=== PATIENT | female | born 1985 | race Caucasian/White ===

== ENCOUNTER 2017-01-02 08:57 | Inpatient (IN) | payer OTHER ==
[2017-01-02] MEDS ORDERED: ceFAZolin 2 GM PREMIX(*) 2 GM/50 ML BAG IVPB ONE (09:11)
[2017-01-02 09:26] LABS: Hematocrit 37 % (35-47); Hemoglobin 12.7 g/dl (12.0-16.0); Mean Corpuscular HGB Conc 34 g/dl (31-36); Mean Corpuscular Hemoglobin 31 pg (27-31); Mean Corpuscular Volume 90 fL (80-97); Mean Platelet Volume 10 um3 (7.4-10.4); Red Blood Count 4.11 10^6/ul (4.0-5.4); Red Cell Distribution Width 14 % (10.5-15); White Blood Count 10.8 10^3/ul (3.5-10.8)
[2017-01-02] MEDS ORDERED: fentaNYL* 50 MCG/ML 2 ML VIAL (100 MCG VIAL) ONE (09:42)
[2017-01-02] MEDS ORDERED: OBEPIDURAL* 250 ML ONE (09:43)
[2017-01-02] MEDS ORDERED: ceFAZolin 2 GM PREMIX(*) 2 GM/50 ML BAG IVPB SCH (10:00)
[2017-01-02] MEDS ORDERED: Famotidine TAB* 20 MG PO PRN (11:32)
[2017-01-02] MEDS ORDERED: Sodium Citrate/Citric Acid* 15 ML UDC PO PRN (11:32)
[2017-01-02] MEDS ORDERED: Phenylephrine IV* 40 MCG/ML 10 ML SYRINGE IV PUSH PRN ×2 (11:32)
[2017-01-02] MEDS ORDERED: OBEPIDURAL* 250 ML EPIDURAL SCH (12:00)
[2017-01-02] MEDS ORDERED: Oxytocin in LR* 20 UNITS/1,000 ML BAG IVPB SCH ×2 (16:00→17:01)
[2017-01-02] MEDS ORDERED: Acetaminophen TAB* 325 MG PO PRN (16:59)
[2017-01-02] MEDS ORDERED: Glycerin ADULT SUPP PR PRN (16:59)
[2017-01-02] MEDS ORDERED: Dibucaine 1% 28.35 GM TUBE PR PRN (16:59)
[2017-01-02] MEDS ORDERED: Witch Hazel PAD* JAR TOPICAL PRN (16:59)
[2017-01-02] MEDS: Ibuprofen TAB* 600 MG PO PRN (19:47)
[2017-01-02] MEDS: Docusate CAP* 100 MG PO SCH (20:37)
[2017-01-03] MEDS: Ibuprofen TAB* 600 MG PO PRN ×2 (05:03→18:02)
[2017-01-03 06:56] LABS: Hematocrit 34 % (35-47); Hemoglobin 11.7 g/dl (12.0-16.0); Mean Corpuscular HGB Conc 34 g/dl (31-36); Mean Corpuscular Hemoglobin 31 pg (27-31); Mean Corpuscular Volume 89 fL (80-97); Mean Platelet Volume 10 um3 (7.4-10.4); Red Blood Count 3.83 10^6/ul (4.0-5.4); Red Cell Distribution Width 14 % (10.5-15); White Blood Count 12.9 10^3/ul (3.5-10.8)
[2017-01-03] MEDS ORDERED: Ferrous Gluconate TAB* 324 MG TAB PO SCH (09:00)
[2017-01-03] MEDS: Docusate CAP* 100 MG PO SCH ×3 (09:00→19:43)
[2017-01-03] MEDS: oxyCODONE/Acetamin 5/325 MG* TAB PO PRN ×2 (11:41→19:28)
[2017-01-04] MEDS: Ibuprofen TAB* 600 MG PO PRN ×2 (00:48→06:33)
[2017-01-04] MEDS: oxyCODONE/Acetamin 5/325 MG* TAB PO PRN ×2 (03:58→10:48)
[2017-01-04 08:12] VITALS: BP 109/75
== END 2017-01-04 13:05 | disposition home or self-care (01) | DRG 560 ==
LOC: MCHOBOUT 08:57 → MCHOB 09:08
PROVIDERS: ADMIT Midwife; ATTEND Midwife
PROC: 10E0XZZ Delivery of Products of Conception, External Approach (ICD-10-PCS; principal; 2017-01-02)
DX: O60.20X0 Term delivery with preterm labor, unspecified trimester, not applicable or unspecified (principal); O99.824 Streptococcus B carrier state complicating childbirth; O69.89X0 Labor and delivery complicated by other cord complications, not applicable or unspecified; Z88.1 Allergy status to other antibiotic agents; Z88.2 Allergy status to sulfonamides; Z3A.38 38 weeks gestation of pregnancy; Z37.0 Single live birth
CPT/HCPCS: 36415; 85025; 85027; 86850; 86900; 86901; A9270-GY; J0690; J3010

== ENCOUNTER 2017-09-08 17:52 | Emergency (ER) | payer SELFPAY ==
[2017-09-08 19:45] LABS: ABS Basophils 0.1 10^3/ul (0-0.2); ABS Eosinophils 0.3 10^3/ul (0-0.6); ABS Lymphocytes 3.1 10^3/ul (1.0-4.8); ABS Monocytes 0.5 10^3/ul (0-0.8); ABS Neutrophils 5.7 10^3/ul (1.5-7.7); ABS Nucleated RBC 0 10^3/ul; Eosinophil % 2.8 % (0-6); Hematocrit 39 % (35-47); Hemoglobin 13.8 g/dl (12.0-16.0); Lymphocyte % 32.3 % (25-47); Mean Corpuscular HGB Conc 35 g/dl (31-36); Mean Corpuscular Hemoglobin 30 pg (27-31); Mean Corpuscular Volume 84 fL (80-97); Nucleated Red Blood Cells % 0; Platelet Count 290 10^3/ul (150-450); Red Blood Count 4.69 10^6/ul (4.0-5.4); Red Cell Distribution Width 14 % (10.5-15); White Blood Count 9.6 10^3/ul (3.5-10.8)
[2017-09-08 20:03] LABS: EGFR Non-African American 100.3 (>60)
[2017-09-08] MEDS ORDERED: Iohexol 300* (CONTRAST) 10 ML SDV IV ONE (20:27)
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
[2017-09-08] MEDS ORDERED: Diazepam TAB(*) 5 MG PO ONE (21:24)
[2017-09-08] MEDS ORDERED: Acetaminophen TAB* 325 MG PO ONE (21:24)
[2017-09-08 21:57] VITALS: BP 122/68
== END 2017-09-08 21:56 | disposition home or self-care (01) ==
LOC: ED 17:52
DX: Z04.1 Encounter for examination and observation following transport accident (principal)
CPT/HCPCS: 36415; 70450; 71260; 72125; 74177; 80053; 83605; 85025; 99282; A9270-GY; Q9967

== ENCOUNTER 2017-10-22 09:02 | Emergency (ER) | payer OTHER ==
[2017-10-22 09:14] VITALS: BP 100/62
--- NOTE | 2017-10-22 10:16 | UC ---
Respiratory Complaint HPI - HPI Summary HPI Summary: 32 yo WF c/o increasing and worsening cough with green sputum and pleuritic CP x 3 weeks now, took anti-allergy meds without improvement. Denies f/c - History of Current Complaint Chief Complaint: UCRespiratory Stated Complaint: COUGH Time Seen by Provider: 10/22/17 09:48 Hx Obtained From: Patient Hx Last Menstrual Period: had implant taken out 3 weeks ago Onset/Duration: Lasting Weeks Severity Initially: Moderate Severity Currently: Severe Pain Intensity: 4 Character: Cough: Productive Aggravating Factors: Nothing Alleviating Factors: Nothing Associated Signs And Symptoms: Positive: Pleuritic Chest Pain Related History: Seasonal Allergies - Allergies/Home Medications Allergies/Adverse Reactions: Allergies Allergy/AdvReac Type Severity Reaction Status Date / Time Adhesive Tape Allergy Rash Verified 10/22/17 09:15 amoxicillin Allergy Rash Verified 10/22/17 09:15 Sulfa (Sulfonamide Allergy Rash Verified 10/22/17 09:15 Antibiotics) PMH/Surg Hx/FS Hx/Imm Hx Previously Healthy: Yes Other History Of: Negative For: Anticoagulant Therapy - Surgical History Surgical History: Yes Surgery Procedure, Year, and Place: colectomy at 21, gallbladder removal 2013. SCAR REMOVAL ADHESIONS X3 - Family History Known Family History: Positive: Other - FHx of asthma, Father Hx of Parkinson's - Social History Alcohol Use: None Substance Use Type: None Smoking Status (MU): Never Smoked Tobacco - Immunization History Most Recent Influenza Vaccination: 2014 Most Recent Tetanus Shot: up to date Most Recent Pneumonia Vaccination: unsure Review of Systems Constitutional: Negative Skin: Negative Eyes: Negative ENT: Negative Respiratory: Cough Cardiovascular: Negative Gastrointestinal: Negative Genitourinary: Negative Motor: Negative Neurovascular: Negative Musculoskeletal: Negative Neurological: Negative Psychological: Negative All Other Systems Reviewed And Are Negative: Yes Physical Exam Triage Information Reviewed: Yes Appearance: No Pain Distress Vital Signs: Initial Vital Signs Temp 36.7 C 10/22/17 09:08 Pulse 114 10/22/17 09:08 Resp 20 10/22/17 09:08 BP 100/62 10/22/17 09:08 Pulse Ox 99 10/22/17 09:08 Eye Exam: Normal ENT Exam: Normal Dental Exam: Normal Neck exam: Normal Neck: Positive: 1 Respiratory: Positive: No respiratory distress, Rhonchi. Negative: Crackles, Stridor, Wheezing Cardiovascular Exam: Normal Abdominal Exam: Normal Musculoskeletal Exam: Normal Neurological Exam: Normal Psychological Exam: Normal Skin Exam: Normal UC Diagnostic Evaluation - Laboratory O2 Sat by Pulse Oximetry: 99 Respiratory Course/Dx - Differential Dx/Diagnosis Provider Diagnoses: bronchitis. cough Discharge - Sign-Out/Discharge Documenting (check all that apply): Discharge/Admit/Transfer - Discharge Plan Condition: Stable Disposition: HOME Prescriptions: Azithromycin TAB* [Zithromax TAB (Z-PRINCESS) 250 mg #6 tabs] 2 tab PO .TODAY, THEN 1 DAILY #1 princess Benzonatate CAP* [Tessalon 100 MG CAP*] 100 mg PO TID 10 Days #30 cap Promethazine HCl/Codeine [Prometh-Codein 6.25-10 mg/5 ml] 5 ml PO QID PRN 7 Days #1 btl MDD 20ml PRN Reason: Cough Patient Education Materials: Acute Bronchitis (ED) Referrals: Christa Craft MD [Primary Care Provider] - - Billing Disposition and Condition Condition: STABLE Disposition: HOME
== END 2017-10-22 10:19 | disposition home or self-care (01) ==
LOC: UCEAST 09:02
DX: J40 Bronchitis, not specified as acute or chronic (principal); R05 Cough; Z88.0 Allergy status to penicillin; Z88.2 Allergy status to sulfonamides; Z91.09 Other allergy status, other than to drugs and biological substances
CPT/HCPCS: 99212; G0463

== ENCOUNTER 2017-11-29 17:45 | Emergency (ER) | payer OTHER ==
[2017-11-29 17:58] VITALS: BP 94/64
--- NOTE | 2017-11-29 19:58 | UC ---
Georgette Brady Emily, scribed for Severo Acosta MD on 11/29/17 at 1809 . Ear Complaint HPI - HPI Summary HPI Summary: This patient is a 32 year old F presenting to [facility] accompanied by with a chief complaint of water in bilateral ears that began yesterday. The patient rates the pain 3/10 in severity. Symptoms aggravated by nothing. Symptoms alleviated by nothing. Patient reports cough (began 6 weeks ago). Allergies reviewed. Medications reviewed. - History of Current Complaint Chief Complaint: UCEar Stated Complaint: WATER IN EARS Time Seen by Provider: 11/29/17 18:00 Hx Obtained From: Patient Hx Last Menstrual Period: [id number] ?: No Onset/Duration: Sudden Onset, Lasting Days, Still Present Severity Initially: Mild Severity Currently: Mild Pain Intensity: 3 Pain Scale Used: 0-10 Numeric Aggravating Factors: Nothing Alleviating Factors: Nothing Associated Signs/Symptoms: Positive: Foreign Body Sensation, URI Symptoms - Allergies/Home Medications Allergies/Adverse Reactions: Allergies Allergy/AdvReac Type Severity Reaction Status Date / Time Adhesive Tape Allergy Rash Verified 11/29/17 17:58 amoxicillin Allergy Rash Verified 11/29/17 17:58 Sulfa (Sulfonamide Allergy Rash Verified 11/29/17 17:58 Antibiotics) PMH/Surg Hx/FS Hx/Imm Hx Previously Healthy: No Endocrine History: Other Other Endocrine History: Negative thyroid disease Cardiovascular History: Other Other Cardiovascular History: Negative HTN Other History Of: Negative For: Anticoagulant Therapy - Surgical History Surgical History: Yes Surgery Procedure, Year, and Place: colectomy at 21, colectomy reversal three months later. gallbladder removal 2013. SCAR REMOVAL ADHESIONS X3 - Family History Known Family History: Positive: Other - FHx of asthma, Father Hx of Parkinson's - Social History Occupation: Employed Full-time Lives: With Family Alcohol Use: Weekly Substance Use Type: None Smoking Status (MU): Never Smoked Tobacco - Immunization History Most Recent Influenza Vaccination: 2015 Most Recent Tetanus Shot: up to date Most Recent Pneumonia Vaccination: unsure Review of Systems ENT: Other - Positive water in ears Respiratory: Cough All Other Systems Reviewed And Are Negative: Yes Physical Exam - Summary Physical Exam Summary: General: well-appearing, no pain distress Skin: warm, color reflects adequate perfusion, dry Head: normal Eyes: EOMI, ISABELLA ENT: Bilateral ear canals have moisture. TMs are not erythematous or bulging. Positive rhinorrhea. Tenderness to palpation of the bilateral tragus. Neck: supple, nontender Respiratory: CTA, breath sounds present, dry cough Cardiovascular: RRR Abdomen: soft, nontender Bowel: present Musculoskeletal: normal, strength/ROM intact Neurological: sensory/motor intact, A&O x3 Psychological: affect/mood appropriate Triage Information Reviewed: Yes Vital Signs: Initial Vital Signs Temp 97.9 F 11/29/17 17:53 Pulse 80 11/29/17 17:53 Resp 16 11/29/17 17:53 BP 94/64 11/29/17 17:53 Pulse Ox 99 11/29/17 17:53 Vital Signs Reviewed: Yes Ear Complaint Course/Dx - Differential Dx/Diagnosis Provider Diagnoses: SINUSITIS. B/L OTITIS EXTERNA Discharge - Sign-Out/Discharge Documenting (check all that apply): Discharge/Admit/Transfer - Discharge Plan Condition: Stable Disposition: HOME Prescriptions: DOXYcycline CAP(*) [DOXYcycline 100MG CAP(*)] 100 mg PO BID #20 cap Neomyc/Polym/HC 1% OTIC SUSP* [Cortisporin Otic Susp 1%*] 4 drop BOTH EARS QID # 1 btl Patient Education Materials: Sinusitis (ED), Otitis Externa (ED) Referrals: [facility] [place] [Outside] Additional Instructions: FOLLOW UP WITH YOUR DOCTOR IF NOT COMPLETELY IMPROVED. GET RECHECKED FOR ANY WORSENING OF YOUR CONDITION OR QUESTIONS OR CONCERNS. - Billing Disposition and Condition Condition: STABLE Disposition: Home The documentation as recorded by the Georgette ford Emily accurately reflects the service I personally performed and the decisions made by me, Severo Acosta MD.
== END 2017-11-29 18:21 | disposition home or self-care (01) ==
LOC: UCEAST 17:45
DX: H60.93 Unspecified otitis externa, bilateral (principal); J32.9 Chronic sinusitis, unspecified; Z91.09 Other allergy status, other than to drugs and biological substances; Z88.0 Allergy status to penicillin; Z88.2 Allergy status to sulfonamides
CPT/HCPCS: 99212; G0463

== ENCOUNTER 2018-01-30 11:33 | Emergency (ER) | payer OTHER ==
--- OUTSIDE RECORDS SUMMARY | 2018-01-30 11:55 | XMS REPORT ---
:1985 External Reference #:[id number] Author Organization [facility] Address [address] [address] Phone [phone] Care Team Providers Name Role Phone Aniceto Clements PA Primary Care Physician Unavailable Payers Type Date Identification Numbers Payment Provider Subscriber Commercial Policy Number: [id number] [facility] Noris Phan PayID: [id number] [address] [place] [address] Problems Date Description Provider Status Onset: 12/15/2004 Ulcerative colitis Sarai Meng MD Active Family History Date Family Member(s) Problem(s) Comments Father Parkinson's Disease Mother Alive And Well First Sister Alive And Well Social History Type Date Description Comments Cigarette Use Never smoked cigarettes Alcohol Drinks alcohol occasionally Smoking Patient has never smoked Allergies, Adverse Reactions, Alerts Date Description Reaction Status Severity Comments 12/15/2004 Sulfa active Rash 11/23/2017 Naproxen active 11/23/2017 Adhesives active 11/23/2017 Amoxicillin active Medications Medication Date Status Form Strength Qnty SIG Indications Ordering Provider Cyclobenzaprine 01/18 Active Tablets 10mg 30tab 1/2 to 1 M62.830 Macadam, HCL s tab by Aliyah mouth MD Sabrina nightly needed muscle spasm Prednisone 01/18 Hx Tablets 20mg 10tab 2 by mouth M62.830 Macadam, /2017 s every Aliyah - joanne Bennett MD 01/23 Oxycodone-Acetam 01/18 Active Tablets 5-325mg 10tab 1/2 to 1 M62.830 Macadam, inophen s tab po qhs Aliyah prn MD Sabrina No Active 11/30 Hx Unknown Medications /2017 - 01/18 Benzonatate 11/23 Hx Capsules 100mg 30cap 1-2 by Macaaracelis s mouth three Aliyah - times a day MD Sabrina 11/23 as needed cough No Active 11/23 Hx Unknown Medications - 11/23 Levofloxacin 11/23 [facility]x [facility] 750[facility] - for 5 days MD Sabrina 11/28 Fluticasone 11/23 Hx Suspension 50mcg/Act 48gm 1 sprays in J01.90 Tila, Propionate each Aliyah - nostril MD Sabrina 11/30 twice daily Hydrocodone 11/23 Hx Syrup 5-1.5mg/5 200ml 5ml every J01.90 Tila Bitartrate/Homat ML 4-6hrs as Aliyah ropine - needed MD Sabrina Methylbromide 11/30 No Active 06/04 Hx Pfau, Medications Erica Soto MD 11/23 Amoxicillin/Clav 06/03 Hx 875mg 20uni 1 PO bid 461.8 ramiro Meng ts WM , Be Sarai Potassium - Sure To 06/04 Take Activia Yogurt Daily While On Meds Tylenol W06/03 Hx Tablets 300mg;30 30tab 1-2 po q4-6 461.8 Yusra Codeine #3 /2012 mg s hours prn Sarai, - more severe 06/04 cough, small snack, mostly use at night mdd 8 Diflucan 09/19 Hx Tablets 150mg 1tabs one tab po 616.10 Yusra times one Anton Moon day, september 09/20 repeat once in 3 days if not cleared Cancel Clindamycin 09/19 Hx Cream 2% 40GMS 1 616.10 Yusra applicatorf Anton Moon ul 09/20 intravagina lly q hs for 7 days Cancel Cancel Physical Exam 05/10 Hx had A V70.0 Yusra normal Sarai - physical 05/11. Bactroban 11/05 Hx Cream 2% 15GMS Use as 682.9 Yusra Directed Anton Moon MD 11/06 bid Diflucan 11/02 Hx Tablets 150mg 1tabs one tab po 616.10 Yusra times one Anton Moon september 11/03 repeat once in 3 days if not cleared Mercaptopurine 12/15 Hx Tablets 50mg 1 PO qd Yusra Anton Moon MD 05/10 Pelvic Sonogram 12/15 Hx Na Na hypomenorrh 626.1 Yusra ea Anton Moon MD 12/16 Naprosyn 12/15 Hx Tablets 500mg 30tab 1 PO bid V70.0 Yusra s With Food Anton Moon prn Pain 05/10 Medications Administered in Office Medication Date Status Form Strength Qnty SIG Indications Ordering Provider PPD Administered Injection Bridgette Meng MD PPD Administered Injection Nurses 6 Schedule Loc 4 Immunizations CPT Code Status Date Vaccine Lot # [id number] Given 03/06/2009 Afluria Or Fluvirin Flu Vac Intramuscular [id number] Given 12/15/2004 Menactra/Menveo Meningococcal Vaccine Vital Signs Date Vital Result Comment 01/18/2018 Heart Rate 78 /min BP Systolic 109 mmHg BP Diastolic 83 mmHg Height 63.5 inches 5'3.50" 11/23/2017 Weight 155.00 lb Heart Rate 78 /min BP Systolic 113 mmHg BP Diastolic 72 mmHg Height 63.5 inches 5'3.50" BMI (Body Mass Index) 27.0 kg/m2 06/03/2012 Body Temperature 98.0 F 05/10/2008 Weight 130.00 lb BP Systolic 104 mmHg BP Diastolic 66 mmHg Height 63 inches 5'3" BMI (Body Mass Index) 23.0 kg/m2 Urine Dipstick - Blood NEGATIVE Neg Nitrites Urine Dipstick - Protein NEGATIVE Neg Leukocytes Urine Dipstick - Glucose NEGATIVE 12/15/2004 Weight 137.50 lb BP Systolic 90 mmHg BP Diastolic 60 mmHg Height 63 inches 5'3" BMI (Body Mass Index) 24.4 kg/m2 Urine Dipstick - Blood TRACE No Leuk/Nitrite Urine Dipstick - Protein TRACE Urine Dipstick - Glucose NEGATIVE Results Test Date Test Result H/L Range Note Urinalysis 09/08/2012 Color YELLOW 1 Appearance CLEAR Spec Grav Urine 1.025 (1.003-1.030) PH Urine 7.0 (5.0-7.5) Leuk Esterase NEGATIVE (Neg) Nitrite Urine NEGATIVE (Neg) Protein Urine NEGATIVE (Neg) Glucose Urine NEGATIVE (Neg) Ketone Urine TRACE (Neg) Urobilinogen 0.2 mg/dL (0-1.0) Bilirubin Urine NEGATIVE (Neg) Blood/HGB Urine NEGATIVE (Neg) Laboratory test finding 09/08/2012 Urine Culture SPECIMEN DESCRIP <SEE 2 NOTE> Laboratory test finding 08/28/2011 Lipase 56 U/L Low (65-230) HCG, Qual. Serum NEGATIVE (Neg) CMP 08/28/2011 Sodium 140 mmol/L (136-145) Potassium 3.6 mmol/L (3.6-5.2) Chloride 103 mmol/L (100-108) Co2 25 mmol/L (22-31) Anion Gap 12 mmol/L (7-16) Urea Nitrogen 13 mg/dL (7-24) Creatinine 0.7 mg/dL (0.6-1.0) BUN/Creat Ratio 18.6 RATIO (10.0-20.0) Glucose 96 mg/dL (70-99) Calcium 9.3 mg/dL (8.4-10.2) Total Protein 7.5 g/dL (6.4-8.2) Albumin 4.4 g/dL (3.5-4.6) Globulin 3.1 g/dL (2.7-4.3) Alb/Glob Ratio 1.4 RATIO Alkaline Phosphatase 95 U/L (50-136) Bilirubin,Total 0.5 mg/dL (0.0-1.0) Ast (Sgot) 26 U/L (11-39) Alt (SGPT) 65 U/L (25-69) GFR >90 ML/MIN/1.73M2 (>59) GFR ( Amer) >90 ML/MIN/1.73M2 (>59) GFR Interpretation <SEE NOTE> 3 CBC W/Diff 08/28/2011 WBC 6.3 K/UL (4.1-11.0) RBC 4.56 M/UL (4.00-5.40) HGB 14.0 GM/DL (12.0-16.0) HCT 40.9 % (36.0-47.0) MCV 89.7 FL (80.0-95.0) MCH 30.6 pg (27.0-32.0) MCHC 34.2 g/dL (32.0-36.0) RDW 12.8 % (10.5-14.5) PLT 286 K/UL (150-400) MPV 8.6 FL (7.1-10.7) Neut % 60.0 % (35.0-75.0) Lymph % 27.0 % (16.0-52.0) Parker % 9.2 % High (0-8.0) Eos % 3.2 % (0-5.0) Baso % 0.6 % (0-4.0) Neut # 3.8 K/UL (1.8-7.7) Lymph # 1.7 K/UL (1.2-4.8) Parker # 0.6 K/UL (0-0.8) Eos # 0.2 K/UL (0-0.5) Baso # 0.0 K/UL (0-0.2) Laboratory test 08/28/2011 Lactic Acid 0.9 mmol/L (0.4-2.0) finding Laboratory test 08/28/2011 Stool Occult Blood POSITIVE (Neg) finding Laboratory test 08/28/2011 Urine Culture SPECIMEN DESCRIP 4 finding <SEE NOTE> Urinalysis 08/28/2011 Color YELLOW 5 Appearance CLEAR Spec Grav Urine 1.020 (1.003-1.030) PH Urine 7.0 (5.0-7.5) Leuk Esterase NEGATIVE (Neg) Nitrite Urine NEGATIVE (Neg) Protein Urine NEGATIVE (Neg) Glucose Urine NEGATIVE (Neg) Ketone Urine 1+ (Neg) Urobilinogen 0.2 mg/dL (0-1.0) Bilirubin Urine NEGATIVE (Neg) Blood/HGB Urine NEGATIVE (Neg) CBC With Auto Diff 05/10/2008 WBC 8.9 K/ul 4.0-10.9 6 RBC 4.61 M/ul 4.20-5.40 6 Hemoglobin 13.9 GM/dl 12.5-16.0 6 Hematocrit 41.1 % 36.0-47.0 6 MCV 89.0 FL 80.0-97.0 6 MCH 30.2 pg 27.0-31.0 6 MCHC 34.0 g/dL 32.0-36.0 6 RDW 12.9 % 11.5-14.5 6 Platelet Count 389 K/ul 140-440 6 Neutrophils 67.4 % 50-70 6 Lymphocytes 23.1 % 20-44 6 Monocytes 7.4 % 2-9 6 Eosinophil 1.8 % 0-4 6 Basophil 0.3 % 0-2 6 Absolute Neutrophils 6.0 K/ul 2.05-7.63 6 Absolute Lymphocytes 2.0 K/ul 0.8-4.8 6 Absolute Monocytes 0.7 K/ul 0.1-1.0 6 Absolute Eosinophils 0.2 K/ul 0.1-0.5 6 Absolute Basophils 0.0 K/ul 0.0-0.3 6 Hematology Comment (Comm2) N/A 6 CMP 05/10/2008 Sodium 141 mmol/L 135-144 6 Potassium 4.7 mmol/L 3.6-5.2 6 Chloride 108 mmol/L 97-110 6 Carbon Dioxide 26 mmol/L 23-33 6 Glucose 87 mg/dL 70-105 6 BUN 10 mg/dL 6-22 6 Creatinine 0.6 mg/dL 0.5-1.3 6 BUN/CR 17 Ratio 12.0-20.0 6 Calcium 9.9 mg/dL 8.6-10.2 6 Total Protein 7.0 g/dL 5.8-7.8 6 Albumin 4.5 g/dL 3.5-4.8 6 Globulin 2.5 g/dL 2.0-3.5 6 A/G Ratio 1.8 Ratio 1.0-2.2 6 Total Bilirubin 0.8 mg/dL 0.3-1.2 6 Alkaline Phosphatase 50 U/L 24-140 6 Alt 13 U/L 4-45 6 Ast 16 U/L 12-40 6 Anion Gap 12 mmol/L 8-16 6 GFR Calculation > 60 mL/min 6, 7 GFR For > 60 mL/min 6, 8 Lipid Panel 05/10/2008 Cholesterol 181 mg/dL 50-199 6 Triglycerides 87 mg/dL 10-150 6 HDL 49 mg/dL 35-85 6, 9 Chol/HDL Ratio 3.7 Ratio 6, 10 VLDL 17 mg/dL 6 LDL (Calc) 115 mg/dL 20-129 6, 11 CBC 12/15/2004 WBC 4.5 K/ul 4.1-10.9 RBC 4.73 M/ul 4.20-6.30 Hemoglobin 14.5 GM/dl 12.5-15.0 Hematocrit 43.1 % 36.0-47.0 MCV 91.2 FL 80.0-97.0 MCH 30.6 pg 26.0-32.0 MCHC 33.6 g/dL 31.0-36.0 RDW 12.1 % 11.5-14.5 Platelet Count 297 K/ul 140-440 Neutrophils 69.1 % 50-70 Lymphocytes 20.4 % 20-44 Monocytes 7.4 % 2-9 Eosinophil 2.3 % 0-4 Basophil 0.8 % 0-2 Absolute Neutrophils 3.2 K/ul 2.05-7.63 Absolute Lymphocytes 0.9 K/ul 0.8-4.8 Absolute Monocytes 0.3 K/ul 0.1-1.0 Absolute Eosinophils 0.1 K/ul 0.1-0.5 Absolute Basophils 0.0 K/ul Low 0.1-0.3 CMP 12/15/2004 Sodium 140 mmol/L 135-145 Potassium 4.2 mmol/L 3.4-5.3 Chloride 107 mmol/L 98-111 Carbon Dioxide 28 mmol/L 22-33 Glucose 92 mg/dL 70-105 BUN 11 mg/dL 6-26 Creatinine 0.7 mg/dL 0.3-1.0 BUN/CR 16 Ratio 12.0-20.0 Calcium 9.5 mg/dL 8.6-10.3 Total Protein 7.3 g/dL 6.2-8.3 Albumin 4.3 g/dL 3.5-5.0 Globulin 3.0 g/dL 2.7-4.3 A/G Ratio 1.4 Ratio 1.0-2.2 Total Bilirubin 1.2 mg/dL 0.1-1.3 Ast 22 U/L 14-37 Alt 24 U/L 8-29 Alkaline Phosphatase 66 U/L 24-108 Anion Gap 9 mmol/L Low 10-20 Laboratory test finding 12/15/2004 TSH 2.23 uIU/ml 0.50-6.00 FSH 7.8 mIU/ml 12 LH 15.9 mIU/ml 13 Prolactin 7.1 ng/ml 14 Lipid Panel 12/15/2004 Cholesterol 156 mg/dL 50-199 Triglycerides 36 mg/dL 30-200 HDL 48 mg/dL 35-85 Chol/HDL Ratio 3.3 Ratio VLDL 7 mg/dL LDL (Calc) 101 mg/dL 20-129 Laboratory test finding 12/15/2004 Testosterone, Total 50.9 ng/dL 14.0- 76.0 -[facility] 1 PERFORMED AT [place] [address] 2 SPECIMEN DESCRIPTION URINE, COLLECTION METHOD NOT SPECIFIED CULTURE RESULTS NO GROWTH REPORT STATUS FINAL 09/09/2012 3 NORMAL KIDNEY FUNCTION OR MILD DISEASE - GFR >OR=60 CHRONIC KIDNEY DISEASE - GFR 15 - 59 RENAL FAILURE - GFR <15 Est. GFR calculation based on the MDRD study equation, which assumes a steady state for creatinine. Est. GFR should not be used for medication dosing. 4 SPECIMEN DESCRIPTION URINE, COLLECTION METHOD NOT SPECIFIED CULTURE RESULTS >100,000 CFU/ML LACTOBACILLUS SPECIES REPRESENTING URETHRAL LINA REPORT STATUS FINAL 08/30/2011 5 PERFORMED AT [place] [address] 6 This sample is drawn by: 7 Concerning GFR GUIDELINES: Normal Function or Mild Renal Disease, if clinically at risk: >/=60mL/min Moderately decreased: 30-59 Severely decreased: 15-29 Renal Failure: <15 Glomerular Filtration Rate (GFR) is estimated based on the MDRD equation, which assumes a steady state for creatinine as recommended by the National Kidney Disease Education Program in conjunction with the National Institutes of Health and the National Kidney Foundation. Clinical conditions in which it may be necessary to measure GFR by using clearance methods include extremes of age and body size, severe malnutrition or obesity, diseases of skeletal muscle, paraplegia or quadriplegia, vegetarian diet, rapidly changing kidney function, and calculation of the dose of potentially toxic drugs that are excreted by the kidneys. 8 Concerning GFR GUIDELINES: Normal Function or Mild Renal Disease, if clinically at risk: >/=60mL/min Moderately decreased: 30-59 Severely decreased: 15-29 Renal Failure: <15 9 PER NCEP ATP III GUIDELINES: RESULTS LOWER THAN 40 MG/DL ARE SUGGESTIVE OF INCREASED RISK FOR CORONARY ARTERY DISEASE. RESULTS > OR=TO 60 MG/DL ARE CONSIDERED A NEGATIVE RISK FACTOR. 10 INTERPRETATION OF CHOL-HDL RATIO CHD RISK FEMALE MALE VERY HIGH >8.3 >14.3 HIGH 5.6 - 8.3 6.7 - 14.3 AVERAGE 3.7 - 5.6 4.0 - 6.7 BELOW AVERAGE 2.5 - 3.7 2.7 - 4.0 PROTECTED <2.5 <2.7 11 PER NCEP ATP III GUIDELINES: OPTIMAL: <100 NEAR OPTIMAL: 100 - 129 BORDERLINE HIGH: 130 - 159 HIGH: 160 - 189 VERY HIGH: >189 12 FSH Female Normal Values: Follicular: 2.7-15.4 mIU/ml Peak: 3.9-22.0 mIU/ml Luteal: 1.0-14.4 mIU/ml Post menopausal: 25.0-160.0 mIU/ml 13 Lutenizing Hormone Female Normals: Follicular: 1.7 - 13.3 mIU/ml Peak: 4.1 - 68.7 mIU/ml Luteal: 0.5 - 19.8 mIU/ml Postmenopausal: 14.4 - 62.2 mIU/ml 14 Prolactin Female Normal Values: Pre-menopausal: 2.1 - 47.6 ng/ml Post-menopausal: 0.0 - 41.4 ng/ml Procedures Description No Information Encounters Type Date Location Provider CPT E/M Dx Office Visit 11/23/2017 11:40[place] [address] J01.90 K51.90 Z68.27 Office Visit 06/03/2012 10:00[place] [address] 461.8 Office Visit 09/19/2009 11:20[place] [address] 616.10 Office Visit 05/10/2008 2:30p [place] [address] V70.0 556.9 616.10 Office Visit 11/05/2006 1:50p [place] [address] 682.9 Office Visit 11/02/2006 9:00[place] [address] 616.10 Office Visit 12/15/2004 10:30a [facility] [place] [address] V70.0 556.9 626.1 625.3 599.7 Plan of Care 01/18/2018 - Aniceto Clements PAM62.830 Muscle spasm of backNew Medication: Cyclobenzaprine HCL 10 mgPrednisone 20 mgOxycodone-Acetaminophen 5-325 mgComments:will treat with meds. defers injections
[2018-01-30 12:00] VITALS: BP 115/79
--- NOTE | 2018-01-30 12:41 | UC ---
Complaint Female HPI - HPI Summary HPI Summary: pt reports 3 day history of pain with urination. denies burning: "its a constant pain, then feels like a bowling ball in my lower stomach when I pee" has seen no blood in urine. drank "a lot" of cranberry juice yesterday but no better. Has had R sided back pain and occasional chills, no N/V/D. very uncomfortable - History Of Current Complaint Chief Complaint: UCGU Stated Complaint: UTI Time Seen by Provider: 01/30/18 12:07 Hx Obtained From: Patient Hx Last Menstrual Period: one week ago ?: No - Nuvaring Onset/Duration: Gradual Onset - over 3 days Timing: Constant Severity Initially: Mild Severity Currently: Moderate Pain Intensity: 7 Character: Dull Aggravating Factor(s): Urination Alleviating Factor(s): Nothing Associated Signs And Symptoms: Positive: Back Pain. Negative: Fever, Vaginal Bleeding/Discharge, Vaginal Discharge, Nausea - Allergies/Home Medications Allergies/Adverse Reactions: Allergies Allergy/AdvReac Type Severity Reaction Status Date / Time Adhesive Tape Allergy Rash Verified 01/30/18 12:00 amoxicillin Allergy Rash Verified 01/30/18 12:00 naproxen Allergy Hives Verified 01/30/18 12:00 Sulfa (Sulfonamide Allergy Rash Verified 01/30/18 12:00 Antibiotics) Home Medications: Home Medications NK [No Home Medications Reported] 01/30/18 [History Confirmed 01/30/18] PMH/Surg Hx/FS Hx/Imm Hx Previously Healthy: Yes GI/ History: Other - ulcerative colitis Other GI/ History: colitis Other History Of: Negative For: Anticoagulant Therapy - Surgical History Surgical History: Yes Surgery Procedure, Year, and Place: colectomy at 21, colectomy reversal three months later. gallbladder removal 2013. SCAR REMOVAL ADHESIONS X3. appendectomy - Family History Known Family History: Positive: Other - FHx of asthma, Father Hx of Parkinson's - Social History Occupation: Employed Full-time Lives: With Family Alcohol Use: Occasionally Substance Use Type: None Smoking Status (MU): Never Smoked Tobacco - Immunization History Most Recent Influenza Vaccination: 2014 Most Recent Tetanus Shot: up to date Most Recent Pneumonia Vaccination: unsure Review of Systems Constitutional: Chills Skin: Negative Respiratory: Negative Cardiovascular: Negative Gastrointestinal: Abdominal Pain Genitourinary: Negative Neurological: Negative Psychological: Negative All Other Systems Reviewed And Are Negative: Yes Physical Exam Triage Information Reviewed: Yes Appearance: Well-Appearing, No Pain Distress, Well-Nourished Vital Signs: Initial Vital Signs Temp 97.5 F 01/30/18 11:57 Pulse 98 01/30/18 11:57 Resp 18 01/30/18 11:57 BP 115/79 01/30/18 11:57 Pulse Ox 100 01/30/18 11:57 Vital Signs Reviewed: Yes Respiratory Exam: Normal Cardiovascular Exam: Normal Abdomen Description: Positive: Soft, CVA Tenderness (L), Other: - R lower abd rebound tenderness. Negative: CVA Tenderness (R) Musculoskeletal Exam: Normal Neurological Exam: Normal Psychological Exam: Normal Skin Exam: Normal Complaint Female Dx - Course Course Of Treatment: Pt refuses ambulance, agrees to report to ER by driving car to [facility] now - Differential Dx/Diagnosis Differential Diagnosis/HQI/PQRI: Appendicitis, Ectopic, Pelvic Inflammatory Disease, Renal Colic, Ureteral Stone, Urinary Tract Infection Provider Diagnoses: abdominal pain Discharge - Sign-Out/Discharge Documenting (check all that apply): Patient Departure All imaging exams completed and their final reports reviewed: No Studies - Discharge Plan Condition: Stable Disposition: HOME Patient Education Materials: Acute Abdominal Pain (ED) Referrals: No Primary Care Phys,NOPCP [Primary Care Provider] - Additional Instructions: Go directly to [facility] ER now. Do not go home first - Billing Disposition and Condition Condition: STABLE Disposition: Home
== END 2018-01-30 12:53 | disposition home or self-care (01) ==
LOC: UCEAST 11:33
DX: R10.31 Right lower quadrant pain (principal); M54.9 Dorsalgia, unspecified; R30.9 Painful micturition, unspecified; Z90.49 Acquired absence of other specified parts of digestive tract; Z88.6 Allergy status to analgesic agent; Z88.0 Allergy status to penicillin; Z88.2 Allergy status to sulfonamides; Z91.048 Other nonmedicinal substance allergy status
CPT/HCPCS: 81003; 87086; 99211; G0463

== ENCOUNTER 2018-01-30 13:19 | Emergency (ER) | payer OTHER ==
[2018-01-30 13:48] LABS: ABS Basophils 0.1 10^3/ul (0-0.2); ABS Eosinophils 0.2 10^3/ul (0-0.6); ABS Monocytes 0.7 10^3/ul (0-0.8); ABS Neutrophils 6.1 10^3/ul (1.5-7.7); ABS Nucleated RBC 0 10^3/ul; Hematocrit 39 % (35-47); Hemoglobin 13.5 g/dl (12.0-16.0); Lymphocyte % 22.1 % (25-47); Mean Corpuscular HGB Conc 34 g/dl (31-36); Mean Corpuscular Hemoglobin 29 pg (27-31); Mean Corpuscular Volume 85 fL (80-97); Mean Platelet Volume 8.5 um3 (7.4-10.4); Nucleated Red Blood Cells % 0.1; Platelet Count 284 10^3/ul (150-450); Red Blood Count 4.61 10^6/ul (4.00-5.40); Red Cell Distribution Width 13 % (10.5-15); White Blood Count 9.1 10^3/ul (3.5-10.8)
[2018-01-30 13:59] LABS: EGFR Non-African American 100.3 (>60)
[2018-01-30] MEDS ORDERED: Ondansetron INJ* 2 MG/ML VIAL IV ONE (14:20)
[2018-01-30] MEDS ORDERED: Ketorolac INJ* 30 MG/ML 1 ML VIAL IV PUSH ONE (14:20)
--- NOTE | 2018-01-30 14:22 | RAD ---
CLINICAL HISTORY: Lower abdominal and left flank pain. Relevant surgical history includes colectomy, cholecystectomy, appendectomy as well as lysis of adhesions x3. COMPARISON: Most recent comparison CT examination is dated September 08, 2017 TECHNIQUE: Noncontrast CT examination of the abdomen and pelvis from the lung bases through the initial tuberosities. FINDINGS: VISUALIZED LUNG BASES: The visualized lung bases are grossly clear. There is no pleural effusion. ABDOMEN AND PELVIS: Evaluation of the solid organs and vasculature is limited without intravenous contrast. The liver, spleen, pancreas and adrenal glands are grossly normal in appearance. The gallbladder is surgically absent. The kidneys are normal in appearance without focal mass, calcification or signs of hydronephrosis. Evaluation of the gastrointestinal tract is limited in the absence of oral contrast. The small and large bowel is not distended. The appendix is not seen consistent with the patient's surgical history. There is surgical anastomotic material at the right hemicolon and again at the rectum. The patient appears to be status post left hemicolectomy. There is infiltration of the peritoneal fat superior and anterior to the urinary bladder (axial image 139 and coronal image 37). The pelvic viscera is normal in appearance. The left ovarian vein measures 1 cm in diameter (image 78). Without intravenous contrast evaluation of the vasculature is limited but there appears to be pathologically dilated (ovarian veins similar to the September 08, 2017 CT examination (the latter of which included IV contrast). There is compression and exaggerated at the left common iliac vein between the right common iliac artery and spine though the lumen does not appear completely obliterated. The abdominal aorta and iliac arteries are normal in course and diameter. Degenerative changes include multilevel loss of intervertebral disc height involving the lower thoracic and lumbar spine.There are no sinister bone lesions. IMPRESSION: 1. There is interval appearance of infiltration of the peritoneal fat immediately superior and anterior to the urinary bladder consistent with panniculitis. 2. No renal calculi or signs of hydronephrosis. 3. Similar to the prior CT examination the left ovarian vein is pathologically dilated measuring 1 cm in diameter and there are are pathologically enlarged left periuterine veins is really 6 mm in diameter. This appearance could be consistent with pelvic congestion syndrome which is characterized by chronic late day gravity dependent pelvic pain, vague gastrointestinal symptoms, superficial varicose veins at the pelvis and lower extremities and/or dyspareunia. 4. 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 Please correlate to left leg swelling, left leg varicose veins and/or history of left leg DVT. 5. Additional chronic and postsurgical changes described in body the report. Findings were discussed over the telephone with Mone STEVENSON at 1415 hours on January 30, 2018.
[2018-01-30] MEDS ORDERED: Morphine INJ** 4 MG/ML 1 ML CARPUJECT IV ONE ×2 (15:37→16:47)
[2018-01-30] MEDS ORDERED: Ciprofloxacin 400MG IVPREMIX(* 400 MG/200 ML BAG IVPB ONE (15:39)
[2018-01-30] MEDS ORDERED: Morphine INJ* 2 MG/ML 1 ML SYRINGE (TWO MG - NEW SYRINGE VERSION) ONE (15:40)
--- NOTE | 2018-01-30 16:53 | ED ---
Abdominal Pain/Female - HPI Summary HPI Summary: Patient is a 32-year-old female with a history of colectomy, appendectomy, cholecystectomy and ulcerative colitis presenting to the ED with diffuse bilateral lower quadrant tenderness radiating into the bilateral groin. Pain is worse with trying to urinate and has pain directly over the bladder felt has a ache and a pressure. She endorses left-sided flank pain. Pain is 9/10, intermittent coming in waves and aching/stabbing. Denies any burning with urination. Denies any nausea, vomiting, diarrhea, constipation. She takes no medications and denies any allergies. She states she is been feeling otherwise well up until approximately 3 days ago when she developed the symptoms. Symptoms have been progressively worsening. She denies any arthropod bite or recent bacterial or viral illness. She denies any trauma to the area. She denies any known malignancy, gout, or inflammatory disease. Denies any rashes, headache, visual disturbances, chest pain or shortness of breath. - History of Current Complaint Chief Complaint: Kathia Stated Complaint: LOWER ABD PAIN,LT FLANK PAIN Time Seen by Provider: 01/30/18 13:27 Hx Obtained From: Patient Hx Last Menstrual Period: one week ago ?: No Onset/Duration: Sudden Onset Timing: Constant Severity Initially: Moderate Severity Currently: Moderate Pain Intensity: 7 Pain Scale Used: 0-10 Numeric Location: Groin Radiates: No Aggravating Factor(s): Nothing Alleviating Factor(s): Nothing Associated Signs and Symptoms: Positive: Negative, Urinary Symptoms. Negative: Diaphoresis, Fever, Cough, Constipation, Blood in Stool, Decreased Appetite, Vaginal Discharge, Nausea, Vomiting - Risk Factors Ectopic Risk Factor: Negative Ovarian Torsion Risk Factor: Negative Allergies/Adverse Reactions: Allergies Allergy/AdvReac Type Severity Reaction Status Date / Time Adhesive Tape Allergy Rash Verified 01/30/18 13:25 amoxicillin Allergy Rash Verified 01/30/18 13:25 naproxen Allergy Hives Verified 01/30/18 13:25 Sulfa (Sulfonamide Allergy Rash Verified 01/30/18 13:25 Antibiotics) PMH/Surg Hx/FS Hx/Imm Hx Previously Healthy: Yes Endocrine/Hematology History: Denies: Hx Anticoagulant Therapy, Hx Blood Disorders, Hx Diabetes, Hx Thyroid Disease, Hx Anemia, Hx Unexplained Bleeding Cardiovascular History: Denies: Hx Aneurysm, Hx Hypertension, Hx Pacemaker/ICD Respiratory History: Denies: Hx Asthma, Hx Chronic Obstructive Pulmonary Disease (COPD) GI History: Reports: Other GI Disorders - UC w/ mulitple colectomies Denies: Hx Ulcer History: Denies: Hx Renal Disease Sensory History: Denies: Hx Hearing Aid Psychiatric History: Denies: Hx Panic Disorder - Surgical History Surgery Procedure, Year, and Place: colectomy at 21, colectomy reversal three months later. gallbladder removal 2013. SCAR REMOVAL ADHESIONS X3. appendectomy - Immunization History Hx Pertussis Vaccination: No Immunizations Up to Date: Unable to Obtain/Confirm Infectious Disease History: No Infectious Disease History: Denies: Hx Clostridium Difficile, Hx Hepatitis, Hx Human Immunodeficiency Virus (HIV), Hx of Known/Suspected MRSA, Hx Shingles, Hx Tuberculosis, Hx Known/ Suspected VRE, Hx Known/Suspected VRSA, History Other Infectious Disease, Traveled Outside the [place] in Last 30 Days - Family History Known Family History: Positive: Other - FHx of asthma, Father Hx of Parkinson's - Social History Occupation: Employed Full-time Lives: With Family Alcohol Use: Occasionally Hx Substance Use: No Substance Use Type: Reports: None Hx Tobacco Use: No Smoking Status (MU): Never Smoked Tobacco Review of Systems Constitutional: Negative Negative: Fever, Chills - is, Fatigue, Skin Diaphoresis Negative: Palpitations, Chest Pain Negative: Shortness Of Breath, Cough Positive: Abdominal Pain - bilateral groin pain. Negative: Vomiting, Diarrhea, Nausea Genitourinary: Negative Positive: no symptoms reported, see HPI Negative: Arthralgia, Myalgia Skin: Negative All Other Systems Reviewed And Are Negative: Yes Physical Exam Triage Information Reviewed: Yes Vital Signs On Initial Exam: Initial Vitals Temp Pulse Resp BP Pulse Ox 98.3 F 88 15 117/75 100 01/30/18 13:22 01/30/18 13:22 01/30/18 13:22 01/30/18 13:22 01/30/18 13:22 Vital Signs Reviewed: Yes Appearance: Positive: Well-Nourished, Ill-Appearing, Pain Distress Skin: Positive: Warm, Skin Color Reflects Adequate Perfusion Head/Face: Positive: Normal Head/Face Inspection Eyes: Positive: EOMI, ISABELLA, Conjunctiva Clear Dental: Negative: Cervical Lymphadenopathy Neck: Positive: Supple, No Lymphadenopathy Respiratory/Lung Sounds: Positive: Clear to Auscultation, Breath Sounds Present Cardiovascular: Positive: RRR, Pulses are Symmetrical in both Upper and Lower Extremities. Negative: Leg Edema Left, Leg Edema Right Abdomen Description: Positive: Soft, Other: - bilateral groin pain and bilateral lower quadrant tenderness. Negative: CVA Tenderness (L), Distended, Guarding, McBurney's Point Tenderness, Peritoneal Signs, Pulsatile Mass Bowel Sounds: Positive: Present Musculoskeletal: Positive: Normal, Strength/ROM Intact Neurological: Positive: Sensory/Motor Intact, Alert, Oriented to Person Place, Time, Facial Symmetry Psychiatric: Positive: Normal, Affect/Mood Appropriate AVPU Assessment: Alert Diagnostics - Vital Signs Vital Signs Temp Pulse Resp BP Pulse Ox 01/30/18 15:42 18 01/30/18 13:22 98.3 F 88 15 117/75 100 - Laboratory Lab Results: Lab Results 01/30/18 01/30/18 01/30/18 Range/Units 13:35 13:35 13:35 WBC 9.1 (3.5-10.8) 10^3/ul RBC 4.61 (4.00-5.40) 10^6/ul Hgb 13.5 (12.0-16.0) g/dl Hct 39 (35-47) % MCV 85 (80-97) fL MCH 29 (27-31) pg MCHC 34 (31-36) g/dl RDW 13 (10.5-15) % Plt Count 284 (150-450) 10^3/ul MPV 8.5 (7.4-10.4) um3 Neut % (Auto) 67.2 (38-83) % Lymph % (Auto) 22.1 L (25-47) % Weber % (Auto) 7.9 H (0-7) % Eos % (Auto) 2.0 (0-6) % Baso % (Auto) 0.8 (0-2) % Absolute Neuts (auto) 6.1 (1.5-7.7) 10^3/ul Absolute Lymphs (auto) 2.0 (1.0-4.8) 10^3/ul Absolute Monos (auto) 0.7 (0-0.8) 10^3/ul Absolute Eos (auto) 0.2 (0-0.6) 10^3/ul Absolute Basos (auto) 0.1 (0-0.2) 10^3/ul Absolute Nucleated RBC 0 10^3/ul Nucleated RBC % 0.1 Sodium 138 (135-145) mmol/L Potassium 4.1 (3.5-5.0) mmol/L Chloride 107 (101-111) mmol/L Carbon Dioxide 26 (22-32) mmol/L Anion Gap 5 (2-11) mmol/L BUN 9 (6-24) mg/dL Creatinine 0.68 (0.51-0.95) mg/dL Est GFR ( Amer) 121.3 (>60) Est GFR (Non-Af Amer) 100.3 (>60) BUN/Creatinine Ratio 13.2 (8-20) Glucose 95 (70-100) mg/dL Lactic Acid 0.6 (0.5-2.0) mmol/L Calcium 8.9 (8.6-10.3) mg/dL Magnesium 1.8 L (1.9-2.7) mg/dL Total Bilirubin 0.60 (0.2-1.0) mg/dL AST 29 (13-39) U/L ALT 37 (7-52) U/L Alkaline Phosphatase 83 (34-104) U/L C-Reactive Protein 17.03 H (<8.01) mg/L Total Protein 7.1 (6.4-8.9) g/dL Albumin 4.4 (3.2-5.2) g/dL Globulin 2.7 (2-4) g/dL Albumin/Globulin Ratio 1.6 (1-3) Lipase < 10 L (11.0-82.0) U/L Result Diagrams: 01/30/18 13:35 01/30/18 13:35 Lab Statement: Any lab studies that have been ordered have been reviewed, and results considered in the medical decision making process. - CT No standard instances CT Interpretation: Positive (See Comments) CT Interpretation Completed By: Radiologist - IMPRESSION: 1. There is interval appearance of infiltration of the peritoneal fat immediately superior and anterior to the urinary bladder consistent with panniculitis. 2. No renal calculi or signs of hydronephrosis. 3. Similar to the prior CT examination the left ovarian vein is pathologically dilated measuring 1 cm in diameter and there are are pathologically enlarged left periuterine veins is really 6 mm in diameter. This appearance could be consistent with pelvic congestion syndrome which is characterized by chronic late day gravity dependent pelvic pain, vague gastrointestinal symptoms, superficial varicose veins at the pelvis and lower extremities and/or dyspareunia. 4. 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 Please correlate to left leg swelling, left leg varicose veins and/or history of left leg DVT. 5. Additional chronic and postsurgical changes described in body the report. Abdominal Pain Fem Course/Dx - Course Course Of Treatment: During the course of treatment, the patient is evaluated for bilateral groin pain with worsening pain over the bladder area. Patient is given 2, 4 mg doses of morphine as well as 30 mg Toradol IV without relief of pain. 4 mg Zofran given. On physical examination, she is exquisitely tender to the bilateral groins as well as bilateral lower quadrants. Denies any tenderness to the right upper quadrant with a left upper quadrant. Denies any epigastric pain. Denies nausea, vomiting. Over McBurney's point and negative Velasquez sign. No CVA tenderness. WBC on labs is WNL UA obtained at urgent care which was negative for signs of infection.She continues to be tender throughout despite pain relief. After 8mg morphine total, pain is under control. CT abdomen and pelvis without contrast obtained which shows a panniculitis, however the etiology is unknown. Started on ciprofloxacin IV. She is given pain control and will return for worsening sxs. She is given pain control as well. No LAD identified in the bilateral groin, epitrochlear nodes or cervical anterior. If symptoms worsen, a US or CT with contrast may be obtained to assess further etiology. - Diagnoses Differential Diagnosis: Positive: Constipation, Renal Colic, Urinary Tract Infection, Other - Panniculitis, vasculitis, periuterine vein etiology, pelvic congestion syndrome, may thurner anatomy Provider Diagnoses: Panniculitis Discharge - Sign-Out/Discharge Documenting (check all that apply): Patient Departure - Discharge Plan Condition: Stable Disposition: HOME Prescriptions: Ciprofloxacin TAB* [Cipro 500 MG TAB*] 500 mg PO BID #14 tab oxyCODONE/Acetamin 10/325(NF) [Percocet 10/325 (NF)] 1 tab PO Q6H #20 tab MDD 4 Referrals: No Primary Care Phys,NOPCP [Primary Care Provider] - Additional Instructions: Ciprofloxacin twice daily x 7 days Oxycodone up to four times daily for pain Please return to the ED for worsening or changing symptoms Follow up with PCP - call wednesday Billing Disposition and Condition Condition: STABLE Disposition: Home
[2018-01-30 17:50] VITALS: BP 111/96
== END 2018-01-30 17:49 | disposition home or self-care (01) ==
LOC: ED 13:19
DX: M79.3 Panniculitis, unspecified (principal); Z88.3 Allergy status to other anti-infective agents; Z88.8 Allergy status to other drugs, medicaments and biological substances; Z88.2 Allergy status to sulfonamides
CPT/HCPCS: 36415; 74176; 80053; 83605; 83690; 83735; 85025; 86140; 96365; 96375; 96376; 99283; J0744; J1885; J2270; J2405

== ENCOUNTER 2018-02-02 11:57 | Emergency (ER) | payer OTHER ==
--- NOTE | 2018-02-02 14:56 | ED ---
Abdominal Pain/Female - HPI Summary HPI Summary: This pt is a 32 y/o female presenting to [facility] c/o worsening bilateral lower abd pain. Pt reports she has hx of partial colectomy, appendectomy, cholecystecomy, and ulcerative colitis. Pt states she went to Urgent Care on 07/18 and was sent to the ED to rule out a kidney infection. At [facility] pt had blood work and an abd/pel CT w/o contrast. She was discharged from the ED with a diagnosis of panniculitis and with rx for cipro/percocet. Pt presents today with worsening lower abd pain and abdominal distension. Pt notes her pain is intermittent and is described as aching/stabbing. Denies fever, chills, nausea, vomiting, chest pain, SOB. LMP: 01/27/18. Pt has been diagnosed with UC since she was 7 years old. She is currently not on any medications for her UC. She was seeing NATALI Stock in [place], who did her partial colectomy. - History of Current Complaint Chief Complaint: EDAbdPain Stated Complaint: ABD PAIN, Time Seen by Provider: 02/02/18 14:45 Hx Obtained From: Patient Hx Last Menstrual Period: one week ago Onset/Duration: Lasting Days, Still Present Timing: Days Severity Currently: Severe Pain Intensity: 7 Pain Scale Used: 0-10 Numeric Location: Other - bilateral lower abd Radiates: No Character: Other: - aching/stabbing Aggravating Factor(s): Nothing Alleviating Factor(s): Nothing Associated Signs and Symptoms: Negative: Fever, Chest Pain, Nausea, Vomiting, Diarrhea Allergies/Adverse Reactions: Allergies Allergy/AdvReac Type Severity Reaction Status Date / Time Adhesive Tape Allergy Rash Verified 02/02/18 12:13 amoxicillin Allergy Rash Verified 02/02/18 12:13 naproxen Allergy Hives Verified 02/02/18 12:13 Sulfa (Sulfonamide Allergy Rash Verified 02/02/18 12:13 Antibiotics) PMH/Surg Hx/FS Hx/Imm Hx Endocrine/Hematology History: Denies: Hx Anticoagulant Therapy, Hx Blood Disorders, Hx Diabetes, Hx Thyroid Disease, Hx Anemia, Hx Unexplained Bleeding Cardiovascular History: Denies: Hx Aneurysm, Hx Hypertension, Hx Pacemaker/ICD Respiratory History: Denies: Hx Asthma, Hx Chronic Obstructive Pulmonary Disease (COPD) GI History: Reports: Other GI Disorders - UC w/ mulitple colectomies Denies: Hx Ulcer History: Denies: Hx Renal Disease Sensory History: Denies: Hx Hearing Aid Psychiatric History: Denies: Hx Panic Disorder - Surgical History Surgery Procedure, Year, and Place: colectomy at 21, colectomy reversal three months later. gallbladder removal 2013. SCAR REMOVAL ADHESIONS X3. appendectomy Infectious Disease History: No Infectious Disease History: Denies: Hx Clostridium Difficile, Hx Hepatitis, Hx Human Immunodeficiency Virus (HIV), Hx of Known/Suspected MRSA, Hx Shingles, Hx Tuberculosis, Hx Known/ Suspected VRE, Hx Known/Suspected VRSA, History Other Infectious Disease, Traveled Outside the [place] in Last 30 Days - Family History Known Family History: Positive: Other - FHx of asthma, Father Hx of Parkinson's Family History: Father with Parkinson's - Social History Alcohol Use: Occasionally Hx Substance Use: No Substance Use Type: Reports: None Hx Tobacco Use: No Smoking Status (MU): Never Smoked Tobacco Review of Systems Negative: Fever, Chills Negative: Chest Pain Negative: Shortness Of Breath Gastrointestinal: Other - abd distension Positive: Abdominal Pain Neurological: Negative All Other Systems Reviewed And Are Negative: Yes Physical Exam - Summary Physical Exam Summary: VITAL SIGNS: Reviewed. GENERAL: Patient is a well-developed and nourished female who is lying comfortable in the stretcher. Patient is not in any acute respiratory distress. HEAD AND FACE: Normocephalic and atraumatic. EYES: PERRLA, EOMI x 2, No injected conjunctiva. EARS: Hearing grossly intact. Ear canals and tympanic membranes are WNL. MOUTH: Oropharynx within normal limits. NECK: Supple, trachea is midline, no adenopathy, no JVD. CHEST: Symmetric, no tenderness at palpation LUNGS: Clear to auscultation bilaterally. No wheezing or crackles. CVS: RRR, S1 and S2 present, no murmurs or gallops appreciated. ABDOMEN: Soft. Lower abdominal tenderness. No signs of distention. Positive bowel sounds. No rebound no guarding, and no masses palpated. No abdominal bruit or pulsations. EXTREMITIES: FROM in all major joints, no edema, no cyanosis or clubbing. NEURO: Alert and oriented x 3. No acute neurological deficits. Speech is normal. SKIN: Dry and warm Triage Information Reviewed: Yes Vital Signs On Initial Exam: Initial Vitals Temp Pulse Resp BP Pulse Ox 98.3 F 80 16 108/67 100 02/02/18 12:08 02/02/18 12:08 02/02/18 12:08 02/02/18 12:08 02/02/18 12:08 Vital Signs Reviewed: Yes Diagnostics - Vital Signs Vital Signs Temp Pulse Resp BP Pulse Ox 02/02/18 13:39 98.1 F 79 16 113/66 02/02/18 12:08 98.3 F 80 16 108/67 100 - Laboratory Result Diagrams: 02/02/18 14:59 02/02/18 14:59 Lab Statement: Any lab studies that have been ordered have been reviewed, and results considered in the medical decision making process. - CT A/P CT CT Interpretation: Positive (See Comments) - IMPRESSION: 1. No significant change in 6.5 x 2.3 cm focal area of fat stranding within the anterior pelvis, which could reflect chronic panniculitis versus fat infarct. 2. Unchanged prominent vasculature adjacent to the left ovary, which could reflect chronic pelvic congestion syndrome. 3. Other chronic findings, as above. CT Interpretation Completed By: Radiologist - ED physician reviewed this radiology report. Abdominal Pain Fem Course/Dx - Course Course Of Treatment: Patient is a 32-year-old female who presents to the emergency department with chief complaint of having lower abdominal pain. The patient reports that she was in the emergency department a couple days ago with some complaints and she had a full workup with blood work, abdominal pelvic CT. She was diagnosed with panniculitis. Patient was sent home with ciprofloxacin and oxycodone for pain. She reports that the pain medication only helps for a couple hours and the pain returns. Blood test results without any significant abnormality except for CRP 24.2, AST of 53, AST of 79. At this point I discussed the symptoms and findings with Dr. Turcios from radiology and he thinks that the patient may benefit of a abdominal and pelvic CT with by mouth and IV contrast. Blood work without any significant abnormality. The patient is awaiting the abdominopelvic CT in the right upper quadrant ultrasound. The patient was signed out to Dr. Vera for at shift change. The patient is hemodynamically stable. - Diagnoses Provider Diagnoses: Panniculitis - Provider Notifications Discussed Care Of Patient With: Bao Marcial Time Discussed With Above Provider: 15:38 Instructed by Provider To: Other - I discussed pt care with Dr. Marcial, radiologist, who recommends PO and IV contrast. Discharge - Sign-Out/Discharge Documenting (check all that apply): Patient Departure, Sign-Out Patient Signing out patient TO: Frank Vera - pending dispo, awaiting CT abdomen/pelvis and US of abdomen - Discharge Plan Condition: Stable Disposition: HOME Prescriptions: Clindamycin Cap(NF) [Clindamycin Cap 300 mg Cap(NF)] 300 mg PO Q6H #30 cap oxyCODONE/Acetamin 5/325 MG* [Percocet 5/325 TAB*] 1 tab PO Q6H PRN #20 tab MDD 4 PRN Reason: Pain Referrals: Aniceto Clements [Primary Care Provider] - 2 Days Milton Hanley MD [Medical Doctor] - 02/09/18 Additional Instructions: - RETURN TO THE EMERGENCY DEPARTMENT FOR CHANGING OR WORSENING SYMPTOMS. FOLLOW UP WITH PCP IN 1-2 DAYS. - Follow up with surgeon on Wednesday to have procedure done. - Take pain meds as needed. - Billing Disposition and Condition Condition: STABLE Disposition: Home - Attestation Statements Document Initiated by Scribe: Yes Documenting Scribe: Liliana Bolton Provider For Whom Scribe is Documenting (Include Credential): Dann Estrada MD Scribe Attestation: Liliana Brady, scribed for Dann Estrada MD on 02/03/18 at 1044. Scribe Documentation Reviewed: Yes Provider Attestation: The documentation as recorded by the Liliana ofrd accurately reflects the service I personally performed and the decisions made by me, Dann Estrada MD
[2018-02-02 15:11] LABS: ABS Basophils 0.1 10^3/ul (0-0.2); ABS Eosinophils 0.3 10^3/ul (0-0.6); ABS Lymphocytes 2.3 10^3/ul (1.0-4.8); ABS Monocytes 0.5 10^3/ul (0-0.8); ABS Neutrophils 4.3 10^3/ul (1.5-7.7); ABS Nucleated RBC 0 10^3/ul; Eosinophil % 3.7 % (0-6); Hematocrit 39 % (35-47); Lymphocyte % 30.8 % (25-47); Mean Corpuscular HGB Conc 34 g/dl (31-36); Mean Corpuscular Hemoglobin 29 pg (27-31); Mean Corpuscular Volume 86 fL (80-97); Mean Platelet Volume 8.6 um3 (7.4-10.4); Nucleated Red Blood Cells % 0.1; Platelet Count 296 10^3/ul (150-450); Red Blood Count 4.51 10^6/ul (4.00-5.40); Red Cell Distribution Width 13 % (10.5-15); White Blood Count 7.5 10^3/ul (3.5-10.8)
[2018-02-02 15:36] LABS: EGFR Non-African American 111.6 (>60)
[2018-02-02] MEDS ORDERED: Ondansetron INJ* 2 MG/ML VIAL IV ONE (15:55)
[2018-02-02] MEDS ORDERED: Morphine VIAL* 10 MG/ML 1 ML VIAL IV ONE ×2 (15:55→17:52)
[2018-02-02] MEDS ORDERED: Iohexol 300* (CONTRAST) 10 ML SDV IV ONE (16:04)
[2018-02-02 16:36] LABS: Urine Appearance Cloudy; Urine Blood Negative (Negative); Urine Color Amber; Urine Ketones Trace (Negative); Urine Protein Negative (Negative); Urine Red Blood Cell 1+(3-5/hpf) (Absent); Urine Specific Gravity 1.023 (1.010-1.030); Urine Urobilinogen Positive (Negative); Urine White Blood Cell 2+(11-20/hpf) (Absent)
[2018-02-02] MEDS ORDERED: NS 0.9% 1000 ML* 2,000 ML IV ONE (17:18)
--- NOTE | 2018-02-02 19:02 | RAD ---
EXAM: CT Abdomen and Pelvis With Intravenous Contrast CLINICAL HISTORY: 32 years old, female; Pain; Abdominal pain; Localized; Lower; Prior surgery; Surgery date: 6+ months; Surgery type: Colectomy; Additional info: Lower abdominal pain. Was seen in ed wednesday, placed on cipro/percocet. Now having worsening abdominal distention/pain. TECHNIQUE: Axial computed tomography images of the abdomen and pelvis with intravenous contrast. All CT scans at this facility use at least one of these dose optimization techniques: automated exposure control; mA and/or kV adjustment per patient size (includes targeted exams where dose is matched to clinical indication); or iterative reconstruction. Coronal and sagittal reformatted images were created and reviewed. CONTRAST: 91 mL of [id number] administered intravenously. COMPARISON: A/P WO CT ABD/PEL W/O 01/30/2018 1:39 PM FINDINGS: Lung bases: Mild bibasilar dependent atelectasis of the lung bases. ABDOMEN: Liver: Unremarkable. No mass. Gallbladder and bile ducts: The gallbladder is surgically absent. Prominence of the common bile duct, likely secondary to cholecystectomy. Pancreas: Unremarkable. No mass. No ductal dilation. Spleen: Unremarkable. No splenomegaly. Adrenals: Unremarkable. No mass. Kidneys and ureters: Unremarkable. No solid mass. No hydronephrosis. Stomach and bowel: Chronic postoperative changes compatible with partial colonic resection. No bowel mucosal thickening identified. No obstruction. PELVIS: Appendix: Appendix is not visualized. Bladder: Unremarkable. No mass. Reproductive: Unchanged prominent vasculature adjacent to the left ovary, which could reflect chronic pelvic congestion syndrome. ABDOMEN and PELVIS: Intraperitoneal space: No significant change in 6.5 x 2.3 cm focal area of fat stranding within the anterior pelvis, which could reflect chronic panniculitis versus fat infarct. No free air. No significant fluid collection. Bones/joints: No acute fracture. No dislocation. Soft tissues: Unremarkable. Vasculature: Aorta is unremarkable. Lymph nodes: Unremarkable. No enlarged lymph nodes. IMPRESSION: 1. No significant change in 6.5 x 2.3 cm focal area of fat stranding within the anterior pelvis, which could reflect chronic panniculitis versus fat infarct. 2. Unchanged prominent vasculature adjacent to the left ovary, which could reflect chronic pelvic congestion syndrome. 3. Other chronic findings, as above.
[2018-02-02] MEDS ORDERED: Clindamycin CAP* 150 MG PO ONE (20:02)
[2018-02-02 21:17] VITALS: BP 0/0
== END 2018-02-02 21:10 | disposition home or self-care (01) ==
LOC: ED 11:57
DX: M79.3 Panniculitis, unspecified (principal); R10.30 Lower abdominal pain, unspecified; Z88.0 Allergy status to penicillin
CPT/HCPCS: 36415; 74177; 80053; 81003; 81015; 82150; 82550; 83605; 83690; 83735; 83880; 84702; 85025; 85610; 85730; 86140; 87086; 96374; 96375; 99284; A9270-GY; J2270; J2405; Q9967

== ENCOUNTER 2019-02-16 10:52 | Emergency (ER) | payer OTHER ==
--- OUTSIDE RECORDS SUMMARY | 2019-02-16 10:58 | XMS REPORT | Continuity of Care Document ---
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 Problems Active Problems Provider Date Ulcerative colitis Sarai Meng MD Onset: 12/15/2004 Social History Type Date Description Comments Sex Female Tobacco Use Start: Unknown Patient has never smoked Smoking Status Reviewed: 02/03/19 Patient has never smoked Allergies, Adverse Reactions, Alerts Active Allergies Reaction Severity Comments Date Sulfa Rash 12/15/2004 Naproxen 11/23/2017 Adhesives 11/23/2017 Amoxicillin 11/23/2017 Medications Active Medications SIG Qnty Indications Ordering Date Provider Cyclobenzaprine HCL 1/2 to 1 tab by 45tabs M62.830 Aliyah Adorno 2018 10mg mouth nightly MD Sabrina Tablets needed muscle spasm Prednisone 2 by mouth 10tabs M62.830 Aliyah Adorno 02/03/2019 20mg Tablets every morning MD Sabrina Tramadol HCL 1-2 tab by 30tabs M62.830 Aliyah Adorno 02/03/2019 50mg Tablets mouth up to two MD Sabrina times daily Loratadine 1 by mouth 90tabs J30.1 Aliyah Adorno 12/07/2018 10mg Tablets every day in in MD Sabrina the morning Fluticasone Propionate 1 sprays in 48gm J30.1 Aliyah Adorno 12/07/2018 each nostril MD Sabrina 50mcg/Act Suspension twice daily Meloxicam 1 by mouth 60tabs M79.10 Aliyah Adorno 09/06/2018 7.5mg Tablets twice a day for MD Sabrina 2-3weeks then as needed M62.830 History Medications Levofloxacin 1 by mouth every 5tabs J01.90 Aliyah Adorno 12/07/2018 - 750mg day for 5 days MD Sabrina 12/12/2018 Tablets Celecoxib 1 by mouth as 60caps M79.10 Aliyah Adorno 09/02/2018 - 100mg needed up to MD Sabrina 09/06/2018 Capsules 2times per day. take regularly for the first 1-2weeks Medications Administered in Office Medication SIG Qnty Indications Ordering Provider Date Sarai Steen MD 02/19/2006 Injection PPD Nurses Schedule Loc 4 02/19/2006 Injection Immunizations CPT Code Status Date Vaccine Lot # [id number] Given 03/06/2009 Afluria Or Fluvirin Flu Vac Intramuscular [id number] Given 12/15/2004 Menactra/Menveo Meningococcal Vaccine Vital Signs Date Vital Result Comment 02/03/2019 9:28am Weight 147.00 lb Heart Rate 119 /min BP Systolic 101 mmHg BP Diastolic 66 mmHg Height 63.5 inches 5'3.50" BMI (Body Mass Index) 25.6 kg/m2 12/07/2018 1:07pm Body Temperature 97.7 F Weight 149.50 lb Heart Rate 99 /min BP Systolic 121 mmHg BP Diastolic 73 mmHg Height 63.5 inches 5'3.50" BMI (Body Mass Index) 26.1 kg/m2 Results Test Date Facility Test Result H/L Range Note Laboratory test finding 09/02/2018 [facility] 93 U/L 12-199 Comprehensive Met Panel[facility] 09/02/2018 [facility] Sodium 141 mmol/L 135- 146 1 Potassium 4.5 mmol/L 3.5-5.2 Chloride# 102 mmol/L 97-110 2 Carbon Dioxide 31 mmol/L 24-34 Glucose 81 mg/dL 70-105 BUN 14 mg/dL 6-26 Creatinine 0.6 mg/dL 0.5-1.4 Calcium 9.5 mg/dL 8.5-10.2 Total Protein 6.9 g/dL 6.0-8.0 Albumin 4.7 g/dL 3.6-4.9 Globulin 2.2 g/dL 2.0-3.5 A/G Ratio 2.1 Ratio 1.0-2.2 Total Bilirubin 0.8 mg/dL 0.1-1.3 Alkaline Phosphatase 62 U/L 24-140 Alt 7 U/L 3-42 Ast 13 U/L 8-42 Anion Gap 8 mmol/L 5-15 3 Nell Egfr >60 >60 4 Non Nell Egfr >60 >60 5 Laboratory test finding 09/02/2018 [facility] 2 mm/hr 0-20 PTH,Intact W/ CA -RL 09/02/2018 [facility], Intact @ 75.7 pg/mL (18.5- 88.0) 6 Calcium @ 9.1 mg/dL (8.4-10.2) 7 1 Updated reference range on new analyzer -2016 2 Updated reference range on new analyzer 3 Updated Reference Range 4 Concerning GFR Guidelines for Americans: Normal function or mild renal disease, if clinically at risk: >/= 60 mL/min Moderately decreased: 30-59 Severely decreased: 15-29 Renal failure: <15 5 Concerning GFR Guidelines: Normal function or mild renal disease, if clinically at risk: >/= 60 mL/min Moderately decreased: 30-59 Severely decreased: 15-29 Renal failure: <15 Glomerular Filtration Rate (GFR) is estimated [...] drugs that are excreted by the kidneys. 6 New Assay and Reference Range in use 01/17/18. 7 Unless otherwise specified, testing performed by [facility] [address] [place] [id number] Procedures Description No Information Available Medical Devices Description No Information Available Encounters Type Date Location Provider Dx Diagnosis Office Visit 12/07/2018 Aniceto [place] PA J01.90 Acute sinusitis, 1:20p unspecified J30.1 Allergic rhinitis due to pollen Z68.26 Body mass index (BMI) 26.0-26.9, adult Office Visit 09/02/2018 10:40a Aniceto [place] PA M79.10 Myalgia, unspecified site K51.90 Ulcerative colitis, unspecified, without complications Z68.27 Body mass index (BMI) 27.0-27.9, adult Assessments Date Code Description Provider 02/03/2019 M62.830 Muscle spasm of back Aniceto Clements PA 02/03/2019 Z68.25 Body mass index (BMI) 25.0-25.9, adult Aniceto Clements PA 12/07/2018 J01.90 Acute sinusitis, unspecified Aniceto Clements PA 12/07/2018 J30.1 Allergic rhinitis due to pollen Aniceto Clements PA 12/07/2018 Z68.26 Body mass index (BMI) 26.0-26.9, adult Aniceto Clements PA 09/02/2018 M79.10 Myalgia, unspecified site Aniceto Clements PA 09/02/2018 K51.90 Ulcerative colitis, unspecified, without BiteAniceto anne PA complications 09/02/2018 Z68.27 Body mass index (BMI) 27.0-27.9, adult Aniceto Clements PA 09/02/2018 M79.10 Myalgia, unspecified site [facility] 09/02/2018 K51.90 Ulcerative colitis, unspecified, without [facility] complications Plan of Treatment 02/03/2019 - Aniceto Clements, PAM62.830 Muscle spasm of backNew Medication: Cyclobenzaprine HCL 10 mg - 1/2 to 1 tab by mouth nightly needed muscle spasmPrednisone 20 mg - 2 by mouth every morningTramadol HCL 50 mg - 1-2 tab by mouth up to two times dailyComments:will treat with meds. defers injections pred burst. tramadol and melox/apgmuremM77.25 Body mass index (BMI) 25.0-25.9, adult Functional Status Description No Information Available Mental Status Description No Information Available Referrals Description No Information Available
[2019-02-16 11:19] VITALS: BP 113/64
--- NOTE | 2019-02-16 11:45 | UC ---
Minor Trauma HPI - HPI Summary HPI Summary: CHIEF COMPLAINT and HPI: This is a 33-year-old female with a complaint of significant pain over the sacrum and coccyx. This condition began after the patient fell down stairs 2 days ago. She fell down 7 stairs on her buttocks. She denies any problems with urinating or bowel movements or any , numbness in the area of the perineum. the pain is 7/10. It is located primarily over the sacrum and coccyx. There is no radiation. It is worse with movement and sitting down. She denies any distal decrease in ability to move or in sensation. Patient has a history of ulcerative colitis with multiple colectomies. She is otherwise healthy. VITAL SIGNS & SaO2 REVIEWED. Within normal limits unless noted here. NURSES NOTE REVIEWED: "Fell on Wednesday and arrives with tailbone pain" [ End ] - History of Current Complaint Chief Complaint: UCGeneralIllness Stated Complaint: TAILBONE INJURY Time Seen by Provider: 02/16/19 11:44 Hx Last Menstrual Period: 01/29/19 Pain Intensity: 7 - Allergies/Home Medications Allergies/Adverse Reactions: Allergies Allergy/AdvReac Type Severity Reaction Status Date / Time Adhesive Tape Allergy Rash Verified 02/16/19 11:20 amoxicillin Allergy Rash Verified 02/16/19 11:20 naproxen Allergy Hives Verified 02/16/19 11:20 Sulfa (Sulfonamide Allergy Rash Verified 02/16/19 11:20 Antibiotics) PMH/Surg Hx/FS Hx/Imm Hx - Additional Past Medical History Additional PMH: PAST MEDICAL HISTORY- CHRONIC and RECURRENT HEALTH PROBLEM LIST REVIEWED. Information relevant to present complaint: ulcerative colitis with multiple colectomies. VISIT HISTORY REVIEWED: MEDICATIONS & ALLERGIES REVIEWED. HYPERTENSION STATUS:not hypertensive. FAMILY HISTORY: Patient denies family history of: hypertension, cardiovascular disease, stroke, diabetes, cancer. 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 Previously Healthy: Yes Other History Of: Negative For: Anticoagulant Therapy - Surgical History Surgical History: Yes Surgery Procedure, Year, and Place: colectomy at 21, colectomy reversal three months later. gallbladder removal 2013. SCAR REMOVAL ADHESIONS X3. appendectomy - Family History Known Family History: Positive: Other - FHx of asthma, Father Hx of Parkinson's Family History: Father with Parkinson's - Social History Alcohol Use: Occasionally Substance Use Type: None Smoking Status (MU): Never Smoked Tobacco - Immunization History Most Recent Influenza Vaccination: 2014 Most Recent Tetanus Shot: up to date Most Recent Pneumonia Vaccination: unsure Review of Systems All Other Systems Reviewed And Are Negative: Yes Constitutional: Positive: Negative Cardiovascular: Positive: Negative Gastrointestinal: Positive: Negative Genitourinary: Positive: Negative Motor: Positive: Negative Neurovascular: Positive: Negative Musculoskeletal: Positive: Myalgia - lumbar Neurological: Positive: Negative, Headache Is Patient Immunocompromised?: No Physical Exam - Summary Physical Exam Summary: Appearance: The patient is well-appearing, is in no pain or distress, and is well-nourished. Eyes: Conjunctiva are clear. Pupils are equal and reactive to light and accommodation. Extra ocular muscle movement is intact. ENT: The hearing is grossly normal, the pharynx is normal, and the TMs are normal. There is no muffled or hoarse voice. No stridor. Neck: The neck is supple and there is no lymphadenopathy. Respiratory: The chest is non-tender to palpation and without crepitus. The lungs are clear, there are normal breath sounds, and there is no respiratory distress. No wheezes, rales or rhonchi. Cardiovascular: Heart sounds reveal a regular rate and rhythm. There are no clicks, rubs or murmurs. There are no carotid bruits or thrills. Circulation is grossly intact. Abdomen: The abdomen is soft and nontender. There is no organomegaly. Bowel sounds are present and within normal limits. No point tenderness at McBurneys point. No CVA tenderness. Musculoskeletal: Strength is intact. The patient moves all extremities. Examination of the spine reveals a no point tenderness. There is tenderness to palpation over the sacrum and coccyx. Patient can ambulate with mild discomfort in slowly. Neurological: The patient is alert. Motor and sensory are examination grossly intact. Speech is normal. Psychological: The patient displays age appropriate behavior, and is conversant. GCS=15. Skin: Negative for rashes. Triage Information Reviewed: Yes Vital Signs: Initial Vital Signs Temp 98.1 F 02/16/19 11:13 Pulse 108 02/16/19 11:13 Resp 18 02/16/19 11:13 BP 113/64 02/16/19 11:13 Pulse Ox 99 02/16/19 11:13 Minor Trauma Course/Dx - Course Course Of Treatment: healthy 33-year-old with a history of ulcerative colitis fell 2 days ago injuring her sacrum and coccyx. X-rays negative for fracture. Patient denies any hematuria, difficulty with bowel movements or blood in the stool. My diagnosis is contusion of the sacrum and coccyx. The patient has been taking ibuprofen and acetaminophen without much relief. She has also been taking muscle relaxers. I will give her 9 Vicodin to take before bedtime. She knows to follow up with any new symptoms or increasing pain. Note: #: [id number] patient has multiple prescriptions from Dr. Clements including one2 weeks ago. I discussed this with the patient and she explained that she was having abdominal pain. - Differential Dx/Diagnosis Differential Diagnosis/HQI/PQRI: Contusion(s), Fracture Provider Diagnosis: Coccyx contusion Discharge ED - Sign-Out/Discharge Documenting (check all that apply): Patient Departure All imaging exams completed and their final reports reviewed: Yes - Discharge Plan Condition: Stable Disposition: HOME Prescriptions: HYDROcodone/ACETAMIN 5-325 MG* [[place]well 5-325 TAB*] 1 tab PO Q6H #10 tab MDD 4 Patient Education Materials: Coccyx Injury (ED) Referrals: Aniceto Clements [Primary Care Provider] - Additional Instructions: WE DISCUSSED: PLEASE SEEK CARE AT THE EMERGENCY DEPARTMENT IF SYMPTOMS WORSEN OR IF NEW SYMPTOMS DEVELOP. FOLLOW UP WITH YOUR PRIMARY CARE PHYSICIAN IF CONDITION CONTINUES BEYOND 3 DAYS WITHOUT IMPROVEMENT. YOUR DIAGNOSIS IS: CONTUSION OF COCCYX YOUR PRESCRIPTION RECOMMENDATION IS: VICODIN # 10 OTHER INSTRUCTIONS: wARM MOIST SOAKS IN THE MORNING; ICE TO THE AREA AFTER WALKING FOR ACUTE PAIN. FOR PAIN AND/OR SLEEP: For pain: Ibuprofen (Motrin and other brand names) 400-600mg PLUS acetaminophen (Tylenol and other brand names) 500mg - 1000mg every 8 hours. - Billing Disposition and Condition Condition: STABLE Disposition: Home
== END 2019-02-16 12:48 | disposition home or self-care (01) ==
LOC: UCEAST 10:52
DX: S30.0XXA Contusion of lower back and pelvis, initial encounter (principal); W10.9XXA Fall (on) (from) unspecified stairs and steps, initial encounter; Y92.9 Unspecified place or not applicable; Z88.2 Allergy status to sulfonamides
CPT/HCPCS: 72220; 99212; G0463